=== PATIENT | male | born 1975 | race Two or more races ===

== ENCOUNTER 2020-10-15 10:00 | Emergency (ER) | payer OTHER ==
[~2020-10-15] VITALS: Ht 177.8 cm; Wt 81.6 kg
[~2020-10-15 10:00] MED LIST: ACETAMINOPHEN500 M1 PO; LEVAQUIN750 MG PO; LEVOFLOXACIN750 MG; LOSARTAN POTASS25 MG; SIMVASTATIN10 MG
[2020-10-15] MEDS ORDERED: NORFLEX100MG PO (15:17)
[2020-10-15] MEDS ORDERED: BACTRIM DS TAB1 EACH PO (15:17)
== END 2020-10-15 17:02 | disposition home or self-care (01) ==
LOC: ER 10:00
DX: B34.8 Other viral infections of unspecified site (principal)

== ENCOUNTER 2023-02-07 15:46 | Emergency (ER) | payer OTHER ==
[~2023-02-07] VITALS: Ht 177.8 cm; Wt 80.7 kg
[~2023-02-07 15:46] MED LIST changes: +BACTRIM DS TAB1 EACH PO; +NORFLEX100MG PO
== END 2023-02-07 20:41 | disposition home or self-care (01) ==
LOC: ER 15:46
DX: N41.9 Inflammatory disease of prostate, unspecified (principal); Z88.6 Allergy status to analgesic agent

== ENCOUNTER 2023-08-15 14:33 | Outpatient (CLI) | payer OTHER | END 2023-08-15 14:45 | disposition home or self-care (01) | LOC: TOM 14:33 | PROVIDERS: ATTEND Urology | DX: N39.0 Urinary tract infection, site not specified (principal) ==